=== PATIENT | female | born 1990 | race Caucasian/White ===

== ENCOUNTER 2017-04-13 03:01 | Inpatient (IN) | payer MEDICAID ==
[~2017-04-13] VITALS: Ht 160 cm; Wt 59.0 kg
[2017-04-13] MEDS ORDERED: IRON1CAP21 PO (03:38)
[2017-04-13] MEDS ORDERED: PNV1TABL76 MT (03:38)
[2017-04-13] MEDS ORDERED: DEXT 5%/LR + PITOCIN 20UNITS/L 1,000 ML IV SCH ×3 (03:39→14:05)
[2017-04-13] MEDS ORDERED: LIDOCAINE HCL 1% 20ML VIAL (Pyxis) INJ INFIL SCH (03:45)
[2017-04-13] MEDS ORDERED: METHYLERGONOVINE MALEATE 0.2 MG/ML IM PRN ×2 (03:45→14:00)
[2017-04-13] MEDS ORDERED: CARBOPROST TROMETHAMINE 250 MCG/ML AMPUL IM PRN (03:45)
[2017-04-13] MEDS ORDERED: NALOXONE HCL 0.4 MG/ML 1ML VIAL IM PRN (03:45)
[2017-04-13] MEDS: LACTATED RINGERS 1,000 ML IV SCH ×2 (04:08→08:58)
[2017-04-13 04:19] LABS: BASOPHILS % 0.4 % (0.0-2.0); EOSINOPHILS % 1.9 % (0.0-5.0); HEMATOCRIT. 36.6 % (36.0-48.0); HEMOGLOBIN. 12.5 g/dL (12.0-16.0); LYMPHOCYTES % 36.1 % (20.0-50.0); MEAN CORPUSCULAR HEMOGLOBIN 31.8 pg (28.0-32.0); MEAN CORPUSCULAR VOLUME 93.4 fL (81.0-99.0); MEAN PLATELET VOLUME 9.5 fl (7.4-10.4); MONOCYTES % 7.5 % (2.0-8.0); NEUTROPHILS % 54.1 % (40.0-76.0); PLATELET 312 x1000/uL (130-400); RED BLOOD CELL COUNT 3.92 mill/uL (4.2-5.4)
[2017-04-13 04:24] LABS: CLARITY URINE CLEAR (CLEAR); COLOR URINE YELLOW (YELLOW); GLUCOSE URINE NEGATIVE (NEGATIVE); KETONES URINE NEGATIVE (NEGATIVE); LEUKOCYTE ESTERASE URINE NEGATIVE (NEGATIVE); NITRITE URINE NEGATIVE (NEGATIVE); OCCULT BLOOD URINE NEGATIVE (NEGATIVE); PH URINE 6.5 (4.5-8.0); PROTEIN URINE NEGATIVE (NEGATIVE); SPECIFIC GRAVITY URINE 1.007 (1.005-1.030); UROBILINOGEN URINE 0.2 E.U./dL (0.2-1.0)
[2017-04-13 04:27] LABS: INR 0.9; PROTHROMBIN TIME 9.4 sec (9.4-11.6)
[2017-04-13] MEDS ORDERED: AMPICILLIN 2,000 MG in SODIUM CHLORIDE 0.9% 100 ML IV SCH (04:30)
[2017-04-13 04:38] LABS: *AMPHETAMINES SCREEN URINE NEGATIVE (NEGATIVE); *BARBITURATES SCREEN URINE NEGATIVE (NEGATIVE); *BENZODIAZEPINES SCREEN URINE NEGATIVE (NEGATIVE); *COCAINE SCREEN URINE NEGATIVE (NEGATIVE); CANNABINOID URINE SCREEN NEGATIVE (NEGATIVE); METHADONE URINE SCREEN NEGATIVE (NEGATIVE); OPIATES URINE SCREEN NEGATIVE (NEGATIVE); PHENCYCLIDINE URINE SCREEN NEGATIVE (NEGATIVE)
[2017-04-13] MEDS: BUTORPHANOL TARTRATE 2 MG/ML VIAL IV PRN ×2 (04:47→07:56)
[2017-04-13 07:09] LABS: HEPATITIS B SURFACE ANTIGEN NEGATIVE; RUBELLA IGG 161.2 IU/mL (4.99-10)
[2017-04-13] MEDS ORDERED: AMPICILLIN 1,000 MG in SODIUM CHLORIDE 0.9% 50 ML IV SCH (11:00)
[2017-04-13] MEDS ORDERED: CARBOPROST TROMETHAMINE 250 MCG/ML AMPUL IM ONE (12:40)
[2017-04-13] MEDS ORDERED: MISOPROSTOL 200MCG TABLET ONE (12:40)
[2017-04-13] MEDS ORDERED: METHYLERGONOVINE MALEATE 0.2 MG/ML ONE (12:40)
[2017-04-13] MEDS ORDERED: LANOLIN OINT 0.25 GM TUBE TOP PRN (14:00)
[2017-04-13] MEDS ORDERED: BISACODYL 10MG SUPP PR PRN (14:00)
[2017-04-13] MEDS ORDERED: ACETAMINOPHEN WITH CODEINE 300/30MG TABLET PO PRN (14:00)
[2017-04-13] MEDS ORDERED: HEMORRHOIDAL SUPP PR PRN (14:00)
[2017-04-13] MEDS ORDERED: DIPHENHYDRAMINE 25MG CAPSULE PO PRN (14:00)
[2017-04-13] MEDS ORDERED: BENZOCAINE/LANOLIN/ALOE VERA SPRAY TOP PRN (14:00)
[2017-04-13] MEDS ORDERED: GLYCERIN/WITCH HAZEL LEAF MEDICATED PAD TOP PRN (14:00)
[2017-04-13] MEDS ORDERED: METHYLERGONOVINE MALEATE 0.2 MG/ML IM SCH (14:05)
[2017-04-13] MEDS ORDERED: CARBOPROST TROMETHAMINE 250 MCG/ML AMPUL IM SCH ×2 (14:15→15:00)
[2017-04-13] MEDS ORDERED: MISOPROSTOL 200MCG TABLET RC SCH (15:00)
[2017-04-13] MEDS: ACETAMINOPHEN WITH CODEINE 300/30MG TABLET PO PRN (16:07)
[2017-04-13] MEDS ORDERED: MAGNESIUM 20 G PREMIX (L & D) 500 ML IV SCH (17:45)
[2017-04-13] MEDS: IBUPROFEN 400MG TABLET PO PRN (18:26)
[2017-04-13] MEDS: CEFAZOLIN 2,000 MG in DEXT 5% WATER 100 ML IV SCH (18:52)
[2017-04-13 20:30] VITALS: BP 111/62
[2017-04-13 21:00] VITALS: BP 112/65
[2017-04-13 22:30] VITALS: BP 113/62
[2017-04-13] MEDS: DOCUSATE SODIUM 100MG CAPSULE PO SCH (22:40)
[2017-04-13] MEDS: MAGNESIUM/ALUMINUM HYDROXIDE/SIMETHICONE 30ML UDC PO SCH (22:40)
[2017-04-13] MEDS: SIMETHICONE 80MG TABLET CHEW PO SCH (22:40)
[2017-04-14] MEDS: CEFAZOLIN 2,000 MG in DEXT 5% WATER 100 ML IV SCH ×3 (03:36→20:00)
[2017-04-14 04:00] VITALS: BP 108/61
[2017-04-14 06:00] VITALS: BP 114/65
[2017-04-14 06:30] LABS: BASOPHILS % 0.2 % (0.0-2.0); EOSINOPHILS % 0.4 % (0.0-5.0); HEMATOCRIT. 33.6 % (36.0-48.0); HEMOGLOBIN. 11.4 g/dL (12.0-16.0); LYMPHOCYTES % 19.5 % (20.0-50.0); MEAN CORPUSCULAR HEMOGLOBIN 32.2 pg (28.0-32.0); MEAN CORPUSCULAR VOLUME 95.3 fL (81.0-99.0); MEAN PLATELET VOLUME 9.1 fl (7.4-10.4); NEUTROPHILS % 72.9 % (40.0-76.0); PLATELET 248 x1000/uL (130-400); RED BLOOD CELL COUNT 3.53 mill/uL (4.2-5.4); RED CELL DISTRIBUTION WIDTH 13.3 % (11.6-14.6)
[2017-04-14 08:44] VITALS: BP 107/71
[2017-04-14] MEDS: MAGNESIUM/ALUMINUM HYDROXIDE/SIMETHICONE 30ML UDC PO SCH (08:59)
[2017-04-14] MEDS: SIMETHICONE 80MG TABLET CHEW PO SCH ×2 (09:00→21:00)
[2017-04-14] MEDS ORDERED: PRENATAL VIT/FE FUMARATE/FA TABLET PO SCH (09:00)
[2017-04-14] MEDS: IBUPROFEN 400MG TABLET PO PRN (09:00)
[2017-04-14] MEDS: ACETAMINOPHEN WITH CODEINE 300/30MG TABLET PO PRN (09:01)
[2017-04-14] MEDS ORDERED: FERROUS SULFATE 325MG TABLET PO SCH (12:10)
[2017-04-14 15:28] VITALS: BP 102/59
[2017-04-14 20:00] VITALS: BP 100/60
[2017-04-14] MEDS: DOCUSATE SODIUM 100MG CAPSULE PO SCH (21:00)
[2017-04-15] VITALS: BP 103/56
[2017-04-15] MEDS: IBUPROFEN 400MG TABLET PO PRN (00:25)
[2017-04-15 07:18] LABS: BASOPHILS % 0.4 % (0.0-2.0); EOSINOPHILS % 1.2 % (0.0-5.0); HEMATOCRIT. 31.2 % (36.0-48.0); HEMOGLOBIN. 10.7 g/dL (12.0-16.0); LYMPHOCYTES % 29.7 % (20.0-50.0); MEAN CORPUSCULAR HEMOGLOBIN 32.6 pg (28.0-32.0); MONOCYTES % 6.7 % (2.0-8.0); PLATELET 233 x1000/uL (130-400); RED BLOOD CELL COUNT 3.29 mill/uL (4.2-5.4); RED CELL DISTRIBUTION WIDTH 13.5 % (11.6-14.6)
[2017-04-15 07:30] VITALS: BP 109/59
== END 2017-04-15 15:26 | disposition home or self-care (01) | DRG 560 ==
LOC: OBSVTOIN 03:01 → L&D 03:01 → 7EST PP/OB 20:30
PROVIDERS: ADMIT Obstetrics & Gynecology; ATTEND Obstetrics & Gynecology
PROC: 0KQM0ZZ Repair Perineum Muscle, Open Approach (ICD-10-PCS; 2017-04-13)
PROC: 10E0XZZ Delivery of Products of Conception, External Approach (ICD-10-PCS; principal; 2017-04-13 14:00)
DX: O70.1 Second degree perineal laceration during delivery (principal); Z37.0 Single live birth; Z3A.39 39 weeks gestation of pregnancy
CPT/HCPCS: 36415; 80305; 81003; 83735; 85025; 85610; 85730; 86592; 86703; 86762; 86850; 86900; 87340; J0290; J0595; J0690; J2210; J2590; J3475; J3490; J7050; J7060; J7120; A4315